=== PATIENT | male | born 1965 | race Caucasian/White ===

== ENCOUNTER 2023-07-19 01:59 | Emergency (ER) | payer BC, OTHER ==
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
[2023-07-19] MEDS ORDERED: TORAdol 30 mg Injection ONE (02:31)
[2023-07-19 02:34] VITALS: TEMP 98.1
[2023-07-19] MEDS: TORAdol 30 mg Injection IM ONE (03:13)
[2023-07-19] MEDS: NORCO 10-325 MG PO ONE (03:28)
[2023-07-19] MEDS ORDERED: NORCO 10-325 MG ONE (03:28)
--- NOTE | 2023-07-19 03:57 | XRAY ---
CLINICAL HISTORY: pop with pain after hyperextending TECHNIQUE: Contiguous axial CT images of the left knee were obtained without intravenous contrast. Coronal and sagittal reconstructions were likewise performed and indicated to increase the sensitivity for detecting clinically relevant pathology. CT scan was performed according to ALARA (as low as reasonable achievable). COMPARISON: None FINDINGS: Tiny 2 mm loose bodies the anterior and posterior joint recess. Fragmented tibial tuberosity with mild overlying soft tissue edema. 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 No acute fracture or dislocation. No destructive osseous lesion. The visualized muscles and tendons appear grossly unremarkable. No cortical destruction to suggest osteomyelitis. No abscess formation. No significant joint effusion. There are no soft tissue masses. IMPRESSION: 1. Tiny 2 mm loose bodies the anterior and posterior joint recess. 2. Fragmented tibial tuberosity with mild overlying soft tissue edema. 3. 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 4. Electronically Signed by: Dr. Anival Amin MD. (07/19/2023 03:52:19 EDT)
[2023-07-19 05:20] VITALS: BP 118/70; PULSE 78; RESP 15; O2SAT 98
== END 2023-07-19 05:15 | disposition home or self-care (01) ==
LOC: ED 01:59
DX: S83.92XA Sprain of unspecified site of left knee, initial encounter (principal); X50.0XXA Overexertion from strenuous movement or load, initial encounter; E78.5 Hyperlipidemia, unspecified; I10 Essential (primary) hypertension; Z79.891 Long term (current) use of opiate analgesic
CPT/HCPCS: 73700; 96372; 99283; J1885; L1830; A9270-GY

== ENCOUNTER 2023-09-02 06:58 | Day surgery (SDC) | payer OTHER ==
[2023-09-02] MEDS ORDERED: CEFAZOLIN 2 GM-D5W BAG** 2 GM/50 ML ML IV ONE (07:08)
[2023-09-02] MEDS ORDERED: Lactated Ringers 1,000 ML IV ONE ×2 (07:08→09:44)
[2023-09-02] MEDS: Lactated Ringers 1,000 ML IV SCH (07:11)
[2023-09-02] MEDS: CEFAZOLIN 2 GM-D5W BAG** 2 GM/50 ML ML IV SCH (07:12)
[2023-09-02] MEDS ORDERED: Marcaine 0.5%/Epinephrine 10 ML ONE (08:32)
[2023-09-02] MEDS ORDERED: ROCURONIUM BROMIDE IV ONE (08:44)
[2023-09-02] MEDS ORDERED: DIPRIVAN 200 MG/20 ML IV ONE (08:44)
[2023-09-02] MEDS ORDERED: Quelicin Fliptop 200 MG/10 ML ONE (08:44)
[2023-09-02] MEDS ORDERED: SUBLIMAZE 100 MCG/2 ML ONE ×2 (08:45→10:06)
[2023-09-02] MEDS ORDERED: Versed 2 MG/2 ML Injection ONE (08:45)
[2023-09-02] MEDS ORDERED: BRIDION 200MG/2ML IV ONE (09:42)
[2023-09-02] MEDS ORDERED: TORAdol 30 mg Injection ONE (09:52)
[2023-09-02] MEDS ORDERED: Hydromorphone 1 mg/ml Injection ONE (10:07)
[2023-09-02] MEDS ORDERED: Zofran 4 MG/2 ML VIAL ONE (10:48)
[2023-09-02 11:04] VITALS: O2SAT 93
--- NOTE | 2023-09-02 11:13 | OP ---
SURGERY DATE/TIME: 09/02/2023 0853 PREOPERATIVE DIAGNOSIS: Torn left medial meniscus, chondromalacia patella. POSTOPERATIVE DIAGNOSIS: Torn left medial meniscus, chondromalacia patella and trochlear groove. PROCEDURE: Arthroscopy of the left knee with partial medial meniscectomy and chondroplasty of the patella and trochlear groove. SURGEON: Shiv Paz II, D.O. ANESTHESIA: General. DESCRIPTION OF PROCEDURE: The patient was identified and informed consent was obtained. The patient was taken to the operative suite and placed in the supine position on the operating table where the general anesthetic was administered. Once an appropriate level of anesthesia had been obtained, the tourniquet was placed high on the right thigh and the left lower extremity was then placed into a knee peralta. The left lower extremity was then prepped and draped in the usual sterile fashion. A standard time out was taken. Following this inferolateral portal was created with an 11 blade and the trocar and cannula placed into the joint. The joint was then distended with the arthroscopic pump. An 18 gauge spinal needle identified the level for the inframedial portal which was also created with an 11 blade. The knee was then inspected in systematic fashion beginning in the suprapatellar pouch had there were no loose bodies or significant synovial hypertrophy. The under surface of the patella had grades 2 and 2 chondromalacia and a chondroplasty was performed with a motorized shaver. Similar findings were noted in the trochlear groove and again a chondroplasty was performed. Gutters were inspected. No loose bodies or synovial hypertrophy. The scope was then placed into the medial compartment where tear involving the posterior horn of the medial meniscus is encountered this is then resected with the handheld biting instrument and shaved to a smooth transition with a shaver. The anterior and middle portions of the medial meniscus were intact. No significant degenerative change is noted on the medial femoral condyle or tibial plateau. The intercondylar notch region was inspected and the anterior cruciate ligament was noted to be intact without evidence of attenuation or tear. The scope was then placed into the lateral compartment with the lateral meniscus, was probed throughout its entirety and noted to be intact without evidence of laxity or tear. Lateral femoral condyle and tibial plateau had no significant degenerative or chondromalacia changes. The knee was then copiously irrigated and re-inspected and no further pathology identified. The instrumentation was removed and the portal sites were closed with interrupted 4-0 Nylon suture. The knee was infiltrated with 30 cc of 0.25% Marcaine with epinephrine. Adaptic, 4x4 and a standard postoperative arthroscopy dressing was applied. The patient was then transferred to the cart and taken to the postoperative anesthesia care unit in satisfactory condition having tolerated the procedure well.
[2023-09-02 11:20] VITALS: BP 124/76; PULSE 60; RESP 16; TEMP 98.2
[2023-09-02] MEDS: NORCO 5/325 MG PO PRN (11:22)
== END 2023-09-02 11:45 | disposition home or self-care (01) ==
LOC: SDC 06:58
PROVIDERS: ATTEND Orthopaedic Surgery
DX: S83.242A Other tear of medial meniscus, current injury, left knee, initial encounter (principal); M22.42 Chondromalacia patellae, left knee
CPT/HCPCS: 29881; 29999; J0330; J0690; J1170; J1885; J2250; J2405; J2704; J3010; A9270-GY